=== PATIENT | male | born 1955 | race Caucasian/White ===

== ENCOUNTER 2018-07-02 10:27 | Day surgery (SDC) | payer BC ==
--- NOTE | 2018-07-01 13:07 | GHP ---
[f rep st] PREOP HISTORY AND PHYSICAL DATE OF ADMISSION: 07/02/2018 DATE OF SURGERY: 07/02/2018 CHIEF COMPLAINT: Right ankle. HISTORY OF PRESENT ILLNESS: Patient is a 63-year-old with a history of progressive right ankle pain. He is having limitations in his activity despite bracing and activity modifications. PAST MEDICAL HISTORY: Unremarkable. PAST SURGICAL HISTORY: Positive for previous shoulder arthroplasty and other orthopedic surgeries. MEDICINES: Cartia XT. ALLERGIES: He is allergic to penicillin, which produces a rash. PHYSICAL EXAMINATION: GENERAL: He is overall appearing in good health. No acute distress. HEENT: Head is normocephalic. Pupils equal, round, reactive to light. Extraocular eye movements intact. NECK: Supple. No JVD or lymphadenopathy. CHEST: Clear to auscultation. HEART: Regular rate and rhythm. No murmurs or gallops. ABDOMEN: Soft, nontender, nondistended. GENITAL/RECTAL/BREASTS: De ferred. EXTREMITIES: Reveals swelling and tenderness in his ankle with diminished right ankle range of motion. ASSESSMENT: Right advanced ankle arthrosis. PLAN: The patient is scheduled to undergo right total ankle arthroplasty. /[id number]/MODL
[2018-07-02] MEDS ORDERED: CLINDAMYCIN 900 MG/DEXTROSE 50 ML IV ONE (10:39)
[2018-07-02] MEDS ORDERED: LR 1,000 ML IV ONE (10:39)
[2018-07-02] MEDS ORDERED: BUPIVACAINE 0.5% 30 ML SDV ONE (11:07)
--- NOTE | 2018-07-02 11:48 | PDANEPAE ---
ANE Past Medical History - Cardiovascular History Hx Hypertension: No Hx Arrhythmias: Yes Hx Chest Pain: No Hx Coronary Artery / Peripheral Vascular Disease: No Hx CHF / Valvular Disease: No Hx Palpitations: No Cardiovascular History Comment: hx of A-FIB WITH ABLATION 10/2013 - NO SXS SINCE. pcp monitors now - Pulmonary History Hx COPD: No Hx Asthma/Reactive Airway Disease: No Hx Recent Upper Respiratory Infection: No Hx Oxygen in Use at Home: No Hx Sleep Apnea: No Sleep Apnea Screening Result - Last Documented: Negative - Neurologic History Hx Cerebrovascular Accident: No Hx Seizures: No Hx Dementia: No - Endocrine History Hx Diabetes: No - Renal History Hx Renal Disorders: No - Liver History Hx Hepatic Disorders: No - Neurological & Psychiatric Hx Hx Neurological and Psychiatric Disorders: No - Cancer History Hx Cancer: No - Congenital Disorder History Hx Congenital Disorders: No Congenital History Comment: PYLORIC STENOSIS AT - GI History Hx Gastrointestinal Disorders: No - Other Health History Other Health History: reading glasses - Chronic Pain History Chronic Pain: Yes (right ankle) - Surgical History Prior Surgeries: 01/04/15 right shoulder arthroplasty with Toi. ABLATION 2013. RT PARTIAL KNEE 12/2012. RT KNEE SCOPE. COLONOSCOPY REMVL POLYPS. PYLORIC STENOSIS INFANT ANE Review of Systems Review of Systems: - Exercise capacity METS (RN): 4 METS ANE Patient History - Allergies Allergies/Adverse Reactions: Penicillins Allergy (Verified 04/03/18 11:57) Rash - Home Medications Home Medications: Multivitamins [Multivitamin (*)] 1 each PO DAILY 12/21/14 [Last Taken 07/01/18] - NPO status NPO Since - Liquids (Date): 07/02/18 NPO Since - Liquids (Time): 06:30 NPO Since - Solids (Date): 07/01/18 NPO Since - Solids (Time): 19:00 - Smoking Hx Smoking Status: Former smoker - Family Anes Hx Family Hx Anesthesia Complications: none ANE Labs/Vital Signs - Vital Signs Blood Pressure: 164/91 Heart Rate: 68 Respiratory Rate: 19 O2 Sat (%): 95 Height: 177.8 cm Weight: 87.543 kg ANE Physical Exam - Airway Mallampati Score: Class 1 - ASA Status ASA Status: II ANE Anesthesia Plan Anesthesia Plan: GA w LMA Regional Anesthesia: continuous NB, popliteal SNB
[2018-07-02] MEDS ORDERED: MIDAZOLAM 2 MG/2 ML VIAL ONE (11:51)
[2018-07-02] MEDS ORDERED: fentaNYL 100 MCG/2 ML INJ ONE (11:52)
--- NOTE | 2018-07-02 12:09 | PDHPUP ---
History & Physical Update H&P update statement: This history and physical update is based on an assessment of the patient which was completed after admission or registration (within 24 hours), but prior to the surgery/procedure. H&P update: H&P reviewed & patient examined, no change in patient's condition since H&P completed
--- NOTE | 2018-07-02 12:10 | POSTOPPROG ---
Post Op Note Date of Operation: 07/02/18 Surgeon: Wayne Rico Basket Maker: Jeremie STRONG Anesthesia: LMA Pre-op Diagnosis: R ankle arthrosis Post-op Diagnosis: Same Procedure: R TAA Inf/Abcess present in the surg proc area at time of surgery?: No EBL: Minimal
[2018-07-02] MEDS ORDERED: PROPOFOL 200 MG/20 ML VIAL ONE (12:20)
[2018-07-02] MEDS ORDERED: LIDOCAINE 2% JELLY 6 ML TOPICAL SYR ONE (12:22)
[2018-07-02] MEDS ORDERED: METOCLOPRAMIDE 10 MG/2 ML VIAL ONE (12:22)
[2018-07-02] MEDS ORDERED: ONDANSETRON 4 MG/2 ML VIAL ONE (12:22)
[2018-07-02] MEDS ORDERED: ROPIVACAINE HCL 150 MG/30 ML INJ ONE (12:36)
[2018-07-02] MEDS ORDERED: ROPIVACAINE 0.2% 1,100 MG in PUMP SET 1 EA NB SCH (13:30)
[2018-07-02] MEDS ORDERED: NALOXONE HCL 0.4 MG/ML INJ IVP PRN (14:42)
[2018-07-02] MEDS ORDERED: LR 500 ML IV PRN (14:42)
[2018-07-02] MEDS ORDERED: MEPERIDINE 25 MG/0.5 ML AMP IVP PRN (14:42)
[2018-07-02] MEDS ORDERED: ONDANSETRON 4 MG/2 ML VIAL IVP PRN (14:42)
[2018-07-02] MEDS ORDERED: PROMETHAZINE HCL 25 MG/ML INJ IVP PRN (14:42)
[2018-07-02] MEDS ORDERED: fentaNYL 100 MCG/2 ML INJ IVP PRN (14:42)
[2018-07-02] MEDS ORDERED: HYDROmorphONE/DILAUDID 1 MG/ML INJ IVP PRN (14:42)
[2018-07-02] MEDS ORDERED: DEXAMETHASONE 4 MG/ML VIAL IVP PRN (14:42)
--- NOTE | 2018-07-02 14:43 | POSTANESTH ---
Post Anesthetic Evaluation Cardiovascular Status: Normal, Stable Respiratory Status: Normal, Stable Level of Consciousness/Mental Status: Can Participate in Eval Pain Control: Adequate, Prn Tx Ordered Nausea/Vomiting Control: Adequate, Prn Tx Ordered Complications Possibly Related to Anesthesia: None Noted
[2018-07-02] MEDS ORDERED: HYDROCODONE/APAP 5/325 TAB PO PRN (14:51)
[2018-07-02] MEDS ORDERED: oxyCODONE IR 5 MG TAB PO PRN (14:58)
[2018-07-02] MEDS ORDERED: D5W 1/2 NS W/ 20 KCl/L 1,000 ML IV SCH (15:00)
[2018-07-02 16:52] VITALS: BP 157/93
--- NOTE | 2018-07-02 19:56 | GOP ---
[f rep st] OPERATIVE REPORT DATE OF OPERATION: 07/02/2018 SURGEON: Wayne Rico MD PURCHASING BUYER: Marquez Walton PA-C, who was necessary for the completion of the surgery. ANESTHESIA: General plus indwelling popliteal and saphenous nerve blocks performed by the anesthesio logist at my request for postoperative pain management. PREOPERATIVE DIAGNOSIS: 1. Right ankle arthrosis. 2. Right fibular exostosis. POSTOPERATIVE DIAGNOSIS: 1. Right ankle arthrosis. 2. Right fibular exostosis. PROCEDURE PERFORMED: 1. Right implant total ankle arthroplasty. 2. Right fibular exostectomy (separate incision). FINDINGS: ESTIMATED BLOOD LOSS: Minimal. INDICATIONS: The patient is a 63-year-old with history of progressive ankle pain. Clinically and ra diographically, he is noted to have end-stage ankle arthritis. Based on his persistence of symptoms, refractory to nonoperative treatment, he is interested in pursuing operative treatment. From an ope rative standpoint, options including arthrodesis and implant total ankle arthroplasty were discussed in detail with anticipated risk and benefit of both. The patient elected to pursue total ankle arthr oplasty. The patient acknowledged he understood the potential risks of the operation including, but not limited to, bleeding, infection, neurovascular damage, loss of limb or limb function, implant anuradha lure requiring revision, removal, arthrodesis or amputation, and anesthetic risks. He acknowledged h e understood the potential risks, planned procedure, and postoperative plan well, and had all questio ns answered prior to surgery. He gave his consent for the operative procedure. DESCRIPTION OF PROCEDURE: The patient was brought in the operating room after IV antibiotics were ad ministered. He was placed in a supine position where general anesthetic was administered. Prior to being brought to the operating room, an indwelling popliteal and saphenous nerve blocks were performe d by the anesthesiologist at my request for postoperative pain management. General anesthetic was ad ministered. A tourniquet was placed on his right thigh, bump underneath the right hip and shoulder a nd right lower extremity. He was prepped and draped in standard sterile fashion. After marking the incision and Wai wrap exsanguination, the tourniquet was inflated to 250. An anterior approach to th e ankle was utilized for exposure. Skin and subcutaneous tissue were sharply incised. Extensor reti naculum was incised in line with the skin incision. The interval between the tibialis anterior and e xtensor hallucis longus was utilized for exposure taking care to avoid damage to the neurovascular bu ndle. The capsule was split and reflected medially and laterally. Hypertrophic synovium was excised . Prominent osteophytes on the anterior aspect of the distal tibia were removed with a chisel. End- stage arthritis was noted. The cutting jig from the [employer] total ankle was applied. Using both direct visualization and fluoroscopic guidance, the distal tibial cutting block was positioned o ptimally correcting for varus/valgus, flexion/extension, rotation and translation. Additionally, the optimal length of the distal cut was confirmed fluoroscopically utilizing the Bony Wing. The cutti ng jig was then pinned into place. After protecting the medial and lateral gutters with pins, the tr ansverse tibial cut was made with a saw. The holes in the medial aspect of the guide were drilled, a nd the medial cut was finished with a reciprocating saw. Cut bone portions of the tibia were removed , reflecting them off the posterior capsule. Attention was then directed toward the talus. The talar dome cutting guide was applied and after dis traction through the cutting jig was performed, the guide was pinned into place. The transverse abimael r dome cut was then made with a saw. The cutting guide for the posterior chamfer cut was then applie d, and after confirming optimal position fluoroscopically, pinned into place. The posterior chamfer cut was made with a saw. The anterior chamfer drilling guide was then placed over guide pins and def initively pinned into place. The milling drill bit was then utilized to create the anterior chamfer cut. Peg holes for the talar component were then made. Based on intraoperative visualization, a siz e 3 talar trial implant was impacted into place and found to have very favorable fit. After measurin g for appropriate size, a 3X tibial trial was placed with a size 7 mm polyethylene. This was found t o have excellent fit both clinically and fluoroscopically. The peg holes on the tibia were drilled t hrough the trial implant. Definitive implants were placed. 3X tibial component was impacted into pl wai and position confirmed fluoroscopically. The porous-coated surface of the talar component was th en coated with a "slurry" of autologous bone taken from the tibial bone cuts in hopes of improving in growth. This was impacted into place and found radiographically to have excellent positioning. Poly ethylene was then inserted. The ankle was found to have good stability with favorable range of motio n. Attention was directed toward closure. After copious irrigation, the extensor retinaculum was closed with 2-0 Vicryl suture in interrupted fashion. Subcutaneous tissue closed with 3-0 Vicryl suture in interrupted fashion. Skin closed with 4-0 nylon interrupted horizontal mattress sutures. A small incision was made along his distal aspect of his lateral malleolus. Sharp dissection was car ried through the periosteum down to the distal fibula. The bony prominence was removed with a rongeu r. The periosteum was closed with 2-0 Vicryl suture in interrupted fashion. Subcutaneous tissue keshia sed with 3-0 Vicryl suture in interrupted fashion. Skin closed with 4-0 nylon interrupted sutures. The wounds were dressed with sterile Adaptic, 4 x 4, and Webril, and leg was placed in a below-knee s plint. Patient tolerated the procedure well and was taken to the recovery room, extubated in stable condition postoperatively. All sponge, needle, and instrument counts were reported as being correct. DRAINS: None. COMPLICATIONS: None. PLAN: Patient will be possibly admitted, but more likely discharged home. He would be nonweightbear ing on his operative extremity. /[id number]/MODL
[2018-07-02] MEDS ORDERED: CLINDAMYCIN 600 MG/DEXTROSE 50 ML IV ONE ×3 (20:00→20:28)
[2018-07-03] MEDS ORDERED: DILTIAZEM HCL 240 MG PO SCH ×3 (09:00→14:00)
== END 2018-07-02 17:23 | disposition home or self-care (01) ==
LOC: F3N 10:27 → FSGY 10:27 → UNDOADMIN 10:27 → EDSTATUS 12:30 → UNDODISIN 17:23 → FSGY 17:23
PROVIDERS: ATTEND Orthopaedic Surgery Foot and Ankle Surgery
DX: M19.071 Primary osteoarthritis, right ankle and foot (principal); D16.21 Benign neoplasm of long bones of right lower limb; Z88.0 Allergy status to penicillin
CPT/HCPCS: J2250; J2405; J2704; J2765; J2795; J3010